=== PATIENT | female | born 1985 | race African-American/Black ===

== ENCOUNTER 2019-05-10 07:45 | Day surgery (SDC) | payer OTHER, BC ==
[2019-05-10] MEDS: CEFAZOLIN 2 GM/50 ML (PMX) 50 ML IVPB (06:00)
[2019-05-10] MEDS: SOD CHLORIDE 0.9% 1,000 ML IV (08:59)
[2019-05-10] MEDS ORDERED: CEFAZOLIN 1 GM INJ (10:42)
[2019-05-10] MEDS ORDERED: GLYCOPYRROLATE 0.4 MG INJ (10:42)
[2019-05-10] MEDS ORDERED: DEXAMETHASONE 4 MG/ML 5 ML INJ (10:42)
[2019-05-10] MEDS ORDERED: FENTAnyl 50 MCG/ML VIAL ×2 (10:42→12:31)
[2019-05-10] MEDS ORDERED: ROCURONIUM 50 MG INJ (10:42)
[2019-05-10] MEDS ORDERED: MIDAZOLAM 1 MG/ML 2 ML INJ (10:42)
[2019-05-10] MEDS ORDERED: NEOSTIGMINE 3 MG/3 ML SYRINGE (10:42)
[2019-05-10] MEDS ORDERED: ONDANSETRON 4 MG INJ (10:42)
[2019-05-10] MEDS ORDERED: PROPOFOL 20 ML (10:42)
[2019-05-10] MEDS ORDERED: LABETALOL HCL 20MG INJ (11:02)
[2019-05-10] MEDS ORDERED: BUPIVACAINE 0.25% (MPF) 30 ML INJ (11:38)
[2019-05-10] MEDS ORDERED: MIDAZOLAM 1 MG/ML 2 ML INJ IV (12:00)
[2019-05-10] MEDS ORDERED: LABETALOL HCL 20MG INJ IV (12:00)
[2019-05-10] MEDS ORDERED: MEPERIDINE 25 MG INJ IV (12:00)
[2019-05-10] MEDS ORDERED: TRIMETHOBENZAMIDE 100 MG/ML VIAL IM (12:00)
[2019-05-10] MEDS ORDERED: HYDROmorphONE 1 MG/5 ML IV SYRINGE IV ×3 (12:00)
[2019-05-10] MEDS ORDERED: EPHEDrine 25 MG/5 ML SYG IV (12:00)
[2019-05-10] MEDS ORDERED: FENTAnyl 50 MCG/ML VIAL IV ×2 (12:00)
[2019-05-10] MEDS ORDERED: ONDANSETRON 4 MG INJ IV (12:00)
[2019-05-10] MEDS ORDERED: ALBUTEROL 0.083% (NEB) 2.5 MG/3 ML AMP HHN (12:00)
[2019-05-10] MEDS ORDERED: OXYCODONE/ACETAMINOPHEN (5/325) TAB PO ×2 (12:00)
[2019-05-10] MEDS ORDERED: DIPHENHYDRAMINE 50 MG INJ IV (12:00)
[2019-05-10] MEDS ORDERED: hydrALAzine 20 MG INJ IV (12:00)
[2019-05-10] MEDS ORDERED: IPRATROPIUM (NEB) 0.5 MG/2.5 ML AMP HHN (12:00)
[2019-05-10] MEDS ORDERED: ROPIVACAINE 0.5 % 30 ML VIAL (12:03)
[2019-05-10] MEDS: FENTAnyl 50 MCG/ML VIAL IV (12:56)
[2019-05-10] MEDS ORDERED: HYDROCODONE/APAP (5/325) TAB PO (13:00)
== END 2019-05-10 14:28 | disposition home or self-care (01) ==
LOC: SUR 07:45 → SDS 07:45 → SUR 14:28
DX: K80.10 Calculus of gallbladder with chronic cholecystitis without obstruction (principal); Z87.891 Personal history of nicotine dependence
CPT/HCPCS: 47562; 88304